=== PATIENT | female | born 1980 | race Caucasian/White ===

== ENCOUNTER 2016-10-09 19:36 | Emergency (ER) | payer BC ==
[2016-10-09 19:56] VITALS: BP 117/73
--- NOTE | 2016-10-12 01:53 | ED Elopement Review ---
ED Pt Elopement review - Call Back decision Pt Call Back Decision: No action required
== END 2016-10-09 23:00 | disposition left against medical advice (07) ==
LOC: ED 19:36
DX: M54.2 Cervicalgia (principal); M25.519 Pain in unspecified shoulder; Z53.21 Procedure and treatment not carried out due to patient leaving prior to being seen by health care provider